=== PATIENT | male | born 1975 | race Caucasian/White ===

== ENCOUNTER 2018-06-20 01:14 | Outpatient (CLI) | payer MEDICAID, SELFPAY | END 2018-06-20 01:34 | PROVIDERS: PCP Internal Medicine; Visit Provider Nurse Practitioner Family | DX: R69 Illness, unspecified (principal) ==

== ENCOUNTER 2018-09-08 02:40 | Outpatient (CLI) | payer MEDICAID, SELFPAY | END 2018-09-08 03:00 | PROVIDERS: PCP Nurse Practitioner Family; Visit Provider Nurse Practitioner Family | DX: Z79.899 Other long term (current) drug therapy (principal); Z53.8 Procedure and treatment not carried out for other reasons ==

== ENCOUNTER 2019-11-19 08:39 | Emergency (ER) | payer MEDICAID, SELFPAY ==
[2019-11-19 08:47] VITALS: BP 120/81; PULSE 96; RESP 16; TEMP 37.8; O2SAT 98
--- NOTE | 2019-11-19 08:58 | ED.GENADUL_ITS ---
Discharge Plan Disposition Patient Disposition: HOME Condition: Stable Discharge Details Chief Complaint: GenMedical Clinical Impression: Left-sided weakness Primary Care Provider: Milli Hancock ED Provider: Issa Emmanuel Home Meds and New Rx's Prescriptions: Continued cyclobenzaprine 10 MG tablet 10 mg PO Q8H PRN PRNQty: 14 RF: 0 Discharge Instructions Instructions: Weakness (ED) Additional Instructions: Blood work and x-ray in the ER do not reveal any emergent process. MRI was offered but declined as you would like to pursue outpatient options for an open MRI. I will also give you a referral to our local neurology team. Please watch for new or worsening symptoms and return to the ER for any concerns Referrals: Lelia Lopez MD [ [facility] STAFF PHYSICIAN] - Discharge Data Discharge Date/Time-TO BE ENTERED AT DEPARTURE: 11/19/19 10:40 Medical Decision Making 44-year-old gentleman who has had left-sided weakness since Saturday morning. Already evaluated in another ER. Will reach out to get their records. He currently has a left-sided mouth droop, left arm weakness as documented above. Subjectively feels as though his left leg is weak although I cannot appreciate this on his evaluation. He did present with a low-grade fever however upon reevaluation without any antipyretics he was afebrile. Patient reports that he had a poor experience at the other facility and is here now for a second opinion. He has no new symptoms since Saturday. He clearly has a left-sided deficit, will initiate a cardiac work-up and obtain other records. I was able to review the records from [facility]. He was diagnosed with left facial weakness I was also able to review his CT noncontrast of the head and CT angiograph which was normal. He was evaluated by neurology and started on aspirin therapy. Patient reports that he had a poor experience as an outpatient with neurology and was unable to have his outpatient MRI. My plan today is to see if MRI capabilities are available, work-up already in process, and I will reach out to neurology. I have set the patient up for an MRI at 1 PM today and unfortunately neurology office is closed today but will provide the patient with a referral so he may have a second opinion through neurology locally. Work-up in the ER is unremarkable regarding his blood work and EKG. No change in his presentation upon reevaluation. He reports that he cannot go into a closed MRI and is now declining the MRI today at 1 PM. I explained to him the importance of MRI to further evaluate his symptoms. His symptoms are challenging as they do not fit purely into a TIA, CVA, Oliva's palsy, as his symptoms have essentially waxed and waned. Patient understands this, I even offered to prescribe him Valium to help with his concerns of claustrophobia in the MRI machine but he still declines. He will pursue outpatient MRI at another facility that has what he describes as an open standing MRI machine. Patient ambulated steadily from the ER with unchanged neuro deficit, benign laboratory values and EKG. As above, patient has declined his MRI but does understand the importance of MRI for further evaluation of his symptoms. He was given a referral to Dr. Lopez who I recommended that he contact tomorrow for prompt outpatient reevaluation. He was encouraged to return to the ER for new or worsening symptoms. ECG Data Attestation: I personally reviewed and interpreted this ECG (s) as follows: Interpretation: Sinus rhythm, ventricular rate of 83. No acute ST elevation or depression segments. Reviewed with Dr. Richi CARABALLO General Mode of arrival: ambulatory . Date/Time Provider Initiated Documentation: 11/19/19 08:41 . Limitations to Documentation: no limitations . Information obtained by: patient and family . HPI Narrative: 44-year-old gentleman who presents to the ER via private vehicle with his family for a second opinion of symptoms that began over the weekend. He reports that on Saturday he had a global headache, slightly worse on the left. Occasionally he felt as though his left peripheral vision was altered but this has happened in the past. He currently has no headache or visual changes. He woke up Saturday morning around 9 AM, having gone to bed around 1 AM, and noticed left-sided weakness in his face, arm, leg. He reports that he went to [facility], seen in the ER, reports that his blood work and CT imaging of his head was negative, he saw neurology in the ER and they initiated daily aspirin therapy. He was told that he had a mini stroke, set up with outpatient neurology the following day for MRI, reports poor experience with neurology, and could not have the MRI obtained because he felt claustrophobic and they were unwilling to medicate him. He reports that he continues to have left sided mouth weakness, left arm weakness, and mild left leg weakness. Patient and family report that the weakness is always there but does seem to change in severity. Patient does report taking daily methadone, no change in his dose. Occasional alcohol use, does smoke about a pack a day. He denies recent illness or trauma. Related Data Home Medications Medication Instructions Recorded Confirmed cyclobenzaprine 10 mg PO Q8H PRN PRN #14 tab 10/25/17 Previous Rx's Medication Instructions Recorded cyclobenzaprine 10 mg PO Q8H PRN PRN #14 tab 10/25/17 Allergies Allergy/AdvReac Type Severity Reaction Status Date / Time No Known Allergies Allergy Verified 01/20/19 12:40 General Stated Complaint: Recheck KASSIDY: 3 Review of Systems Constitutional Constitutional: Denies chills, Denies fatigue, Denies fever(s) and Reports headache(s) Eyes Eyes: Reports loss of peripheral vision (Occasionally, not currently) ENT Ears, Nose, Mouth, and Throat: Reports headache(s), Denies neck pain and Denies sore throat Cardiovascular Cardiovascular: Denies chest pain and Denies dyspnea Respiratory Respiratory: Denies cough and Denies dyspnea Gastrointestinal Gastrointestinal: Denies abdominal pain, Denies nausea and Denies vomiting Musculoskeletal Musculoskeletal: Denies back pain, Denies myalgias, Reports muscle weakness, Denies neck pain, Denies numbness and Denies tingling Integumentary/Breasts Skin/Breast: Denies rash Neurologic Neurologic: Reports headache(s), Reports lack of coordination, Reports focal weakness, Denies numbness, Denies tingling and Reports paresthesias (Left side of face) Endocrine Endocrine: Denies fatigue Hematologic/Lymphatic Hematologic/Lymphatic: Denies easy bruising [facility] Medical History Ankle fracture, left (Acute) Cervical spine fracture (Acute) Social History Smoking/Tobacco Use Status: Current every day Tobacco Type: cigarettes Smoking packs per day: 1.5 Smoking cigarettes per day: 30.0 Years smoked: 8 Smoking pack-years: 12.00 Quit status: considering quitting Counseling given: provider counseling and support program Alcohol Intake: never Substance use type: does not use 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[employer], 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 [employer] What is your relationship status?: Panel score (0-1 are the most socially isolated patients): 1 Do you feel safe at home: Yes Do you feel safe in your relationship?: Yes Exam Const General: cooperative, healthy appearing, comfortable and no acute distress Orientation: alert, awake and oriented x3 [facility] Head: normal to inspection, normocephalic and atraumatic Ears: external ears normal, TM's normal bilaterally and EAC's normal General nose exam: external nose normal Face and sinus: face asymmetric (Left mouth droop) Mouth: oral mucosae normal and moist mucous membranes Eyes General: appearance normal, both eyes and all related structures Alignment and Position: alignment normal Periorbital: periorbital findings normal Conjunctivae: conjunctivae normal Sclera: sclerae normal Cornea: corneas normal Pupils: PERRL EOM: EOM intact bilaterally Direct ophthalmoscopy: normal light reflex Neck Neck: normal visual inspection, full ROM, no lymphadenopathy, no meningeal signs, trachea midline and supple Resp Effort & Inspection: normal respiratory effort and able to speak in complete sentences Auscultation: clear to auscultation bilaterally Cardio Rate: regular rate Rhythm: regular rhythm GI Inspection: normal to inspection Palpation: soft and nontender Back/Spine/Pelvis Back: No back tenderness Skin General skin exam: no rashes or lesions noted Neuro General: alert, awake, oriented x3, moves all extremities and no focal motor deficits Cranial Nerves: PERRL, EOM intact bilaterally, no nystagmus, facial strength abnormal, tongue midline, hearing normal, able to rotate head bilaterally and able to elevate shoulders bilaterally Cognition: normal cognition Speech: speech normal Gait: other (The patient appears to be slightly favoring his left side with ambulation.) Motor: no fasciculations, pronator drift pronator drift of left upper extremity, strength abnormal left upper extremity flexion 4 / 5, extension 4 / 5 and abduction 4 / 5 and 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 (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) Sensory Exam: no sensory deficits noted Coordination: [id number] test normal (Right normal, left, slow, deliberate, shaky but able to do), [id number] test normal (Difficult on the left side but was able to do) and Does not sway with eyes open Extrem Right upper extremity: normal to inspection, full ROM and normal capillary refill; no cyanosis and no edema Left upper extremity: normal to inspection (As above with the weakness), full ROM and normal capillary refill Right lower extremity: normal to inspection Left lower extremity: normal to inspection Psych Appearance: grossly normal Mental Status: mental status grossly normal Course Vital Signs Vital signs: Vital Signs Temperature 37.8 C H 11/19/19 08:47 Pulse 96 H 11/19/19 08:47 Respiratory Rate 16 11/19/19 08:47 Blood Pressure 120/81 11/19/19 08:47 Pulse Oximetry 98 11/19/19 08:47 Temperature 37.8 C H 11/19/19 08:47 Temperature Source Tympanic 11/19/19 08:47 Pulse 96 H 11/19/19 08:47 Respiratory Rate 16 11/19/19 08:47 Blood Pressure 120/81 11/19/19 08:47 Blood Pressure Position Sitting 11/19/19 08:47 Pulse Oximetry 98 11/19/19 08:47 Oxygen Delivery Method Room Air 11/19/19 08:47 Oxygen Flow Rate 0 11/19/19 08:47
--- NOTE | 2019-11-19 09:15 | DI.RAD_ITS ---
EXAM: <XR CHEST 2V PA LATERAL> CLINICAL HISTORY: <weakness> TECHNIQUE: 2D digital imaging was performed. COMPARISON: RIGHT SHOULDER COMPLETE from 10/25/2017 FINDINGS: The cardiac and mediastinal contours have a normal appearance. The lungs are well inflated and clear . No infiltrate, effusion or pneumothorax is seen. No spine or rib fracture is identified. IMPRESSION: Negative chest x-ray.
[2019-11-19 09:30] VITALS: RESP 14
[2019-11-19 09:50] LABS: Abs Immature Grans 0.03 k/cumm (0.0-0.09); Absolute Basophil Count 0.03 k/cumm (0.0-0.2); Absolute Eosinophil Count 0.18 k/cumm (0.0-0.7); Absolute Neutrophil Count 9.01 k/cumm (1.2-6.7); Basophils % 0.2; Eosinophils % 1.4; HCT 47.7 % (40.0-50.0); HGB 16.1 g/dL (13.5-17.5); Immature Grans % 0.2 %; Lymphocytes % 20.6; Mean Corp. HGB Concentration 33.8 g/dL (32.0-36.0); Mean Corpuscular Hemoglobin 28.9 pg (27.0-33.0); Mean Corpuscular Volume 85.6 fL (80-95); Mean Platelet Volume 9.4 fL (8.0-11.0); Monocytes % 6.3; Neutrophils % 71.3; Platelet Count 281 x1000/uL (130-400); RBC 5.57 m/cumm (4.50-6.00); RBC Distribution Width 14.2 % (11.8-14.1); White Blood Cell Count 12.64 k/cumm (4.4-10.8)
[2019-11-19 10:09] LABS: INR 1.1 (0.9-1.1); PTT Activated 25.9 sec (21.0-31.4); Prothrombin Time 10.6 sec (9.3-11.0)
[2019-11-19 10:10] LABS: ALT 22 U/L (16-63); AST 19 U/L (15-37); Albumin 3.9 g/dL (3.4-5.0); Alkaline Phosphatase 99 U/L (46-116); BUN 17 mg/dL (7-18); Bilirubin, Total 1.1 mg/dL (0.2-1.0); Calcium 8.7 mg/dL (8.5-10.1); Chloride 103 mmol/L (98-107); Glucose 93 mg/dL (74-106); Potassium 3.9 mmol/L (3.5-5.1); Sodium 138 mmol/L (136-145); Total Protein 7.3 g/dL (6.4-8.2)
[2019-11-19 10:12] LABS: Troponin I < 0.05 ng/Ml (<0.06)
[2019-11-19 10:36] VITALS: BP 130/90; PULSE 81; RESP 16; TEMP 36.6
== END 2019-11-19 10:40 | disposition home or self-care (01) ==
PROVIDERS: Emergency Provider Physician Assistant; PCP Nurse Practitioner Family
DX: R29.810 Facial weakness (principal); G83.34 Monoplegia, unspecified affecting left nondominant side
CPT/HCPCS: 36415; 80053; 93005; 99285; 71046; 84484; 85025; 85610; 85730; 93010

== ENCOUNTER 2019-12-15 10:48 | Outpatient (REF) | payer MEDICAID, SELFPAY ==
[2019-12-15 19:44] LABS: Calculated LDL 170 mg/dL (<100); Cholesterol 244 mg/dL (<200); HDL Cholesterol 52 mg/dL (40-60); Triglyceride 113 mg/dL (<150)
== END 2019-12-15 11:08 ==
LOC: NCHCN 10:48
PROVIDERS: PCP Nurse Practitioner Family; Visit Provider Physician Assistant
DX: G81.94 Hemiplegia, unspecified affecting left nondominant side (principal)
CPT/HCPCS: 80061

== ENCOUNTER 2020-02-16 00:44 | Outpatient (CLI) | payer MEDICAID, SELFPAY ==
--- NOTE | 2020-01-27 14:21 | DI.US_ITS ---
APPROVED REPORT EXAM: Comprehensive 2D, Doppler, and color-flow Echocardiogram Patient Location: In-Patient [employer] Teacher: Juana Barrientos RDCS (AE) Indications: CVA Echo Enhancing Agent Indication: Rule out Shunt Agent(s) / Amount(s) Used: Agitated Saline cc Other Information Study Quality: Good Conclusion Normal left ventricular wall thickness and chamber size. There are no segmental wall motion abnormal ities. Estimated ejection fraction is 60% There is no chamber enlarged There are no structural valvular abnormalities There was no evidence of patent foramen ovale or intracardiac shunt noted with administration of agit ated saline Wall motion Left Ventricle The left ventricle is normal size. The left ventricular systolic function is normal. The left ventric ular ejection fraction is within the normal range. There is normal left ventricular wall thickness. T here is normal LV segmental wall motion. The left ventricular diastolic function is normal. LVEF is 6 0%. Right Ventricle The right ventricle is normal size. The right ventricular systolic function is normal. Atria The left atrium size is normal. The right atrium size is normal. The interatrial septum is intact wit h no evidence for an atrial septal defect. Saline bubble contrast intravenous injection does not demo nstrate PFO. Aortic Valve The aortic valve is normal in structure. Aortic valve is trileaflet. There is no aortic valvular sten osis. No aortic regurgitation is present. Mitral Valve The mitral valve is normal in structure. No evidence of mitral valve stenosis. Trace mitral regurgita tion. Tricuspid Valve The tricuspid valve is normal in structure. There is no tricuspid valve stenosis. Trace tricuspid reg urgitation. Pulmonic Valve The pulmonary valve is normal in structure. There is no pulmonic valvular stenosis. There is no pulmo anthony valvular regurgitation. Great Vessels The aortic root is normal in size. Ascending aorta is not well visualized. IVC is normal in size and collapses >50% with inspiration. Pericardium There is no pericardial effusion. 2D Dimensions IVSD d PLAX 1.06 cm M: 0.6-1.2 LV Vol A2C d MOD 99.5 mL LVPW d PLAX 1.04 cm M: 0.6 - 1.2 LV Vol A4C d MOD 93.9 mL LVID d PLAX 4.36 cm M: 4.2 - 5.8 LA vol/ BSA A2C s A-L 22.4 mL/m2 LVDs 3.20 cm M: 2.5 - 4.0 LA vol/ BSA A4C s A-L 16.4 mL/m2 Ao Root d 3.25 cm M: 3.1 - 3.7 LA Vol/ BSA Biplane s A-L 19.9 mL/m2 RA Area A4C 11.38 cm2 LA Area A4C s MOD 13.04 cm2 RA Vol/ BSA A4C s A-L 14.1 mL/m2 LA Area A2C s MOD 14.68 cm2 LV EF Teichholz 51.7 % LV EF A4C MOD 61.4 % LVEF (Manjarrez's) 60.75 % M: 52 - 72 LV EF A2C MOD 62.6 % LV Volume 73.18 mL M: 62 - 150 LV EF Biplane MOD 60.8 % LV Volume Index 36.77 mL/m2 M: 34 - 74 LV Vol Biplane MOD 97.4 mL FS 26.20 % M-Mode TAPSE 2.69 cm (M/F) >1.7 LV Diastology MV E' medial 0.086 (>0.07 m/s) E/A Ratio 1.2 LV E/e MED 7.70 (<14) MV E Vmax 0.67 (0.4-1.3 m/s) MV E' lateral 0.109 (>0.1 m/s) MV A Vmax 0.55 (0.4-1.3 m/s) LV E/e LAT 6.10 (<14) MV E/A Ratio 1.18 MV E/E' medial 7.72 MV E/E' lateral 6.11 Aortic Valve LVOT Area 3.26 cm2 AoV Area Vmax 2.64 cm2 LVOT Vmax 0.85 m/s AoV Area/ BSA (Vmax) 1.33 cm2/m2 LVOT Mean Tevin. 0.57 m/s GREGOR Mean Tevin. 2.73 cm2 LVOT Peak Grad 2.9 mmHg GREGOR Mean Tevin. Index 1.37 cm2/m2 LVOT Mean Grad 1.5 mmHg LVOT VTI 0.132 m LVOT Diam s 2.00 cm (M/F) 1.5-2.5 AoV Vmax 1.05 (0.5-1.3 m/s) Velocity Ratio 0.80 AoV Mean Tevin. 0.69 m/s AoV Peak Grad 4.4 mmHg LVOT SV 42.92 mL AoV Mean Grad 2.2 (<5 mmHg) AoV VTI 0.173 (0.18-0.25 m) AoV Area VTI 2.48 (2.5-4.5 cm2) AoV Area/ BSA (VTI) 1.24 cm/m2 Mitral Valve MV DT 217 (160-240 msec) MV PHT 63 msec MV Area PHT 3.50 cm2 Pulmonary Valve PV Vmax 1.17 (0.5-1.5 m/s) RVOT Peak Gr. 4.18 mmHg PV Peak Grad 5.5 mmHg RVOT Mean Gr. 2.05 mmHg PV Mean Grad 2.8 mmHg RVOT VTI 0.145 m PV VTI 0.188 m RVOT Vmax 1.02 m/s Tricuspid Valve TR Peak Grad 16.8 mmHg TR Vmax 2.05 m/s RA Pressure 3.00 mmHg RVSP (TR) 19.9 mmHg
[2020-01-27] MEDS: Normal Saline Flush 10 ML SYR 30 ML IVP (15:48)
== END 2020-02-16 01:04 ==
PROVIDERS: PCP Nurse Practitioner Family; Visit Provider Psychiatry & Neurology Neurology
DX: I69.352 Hemiplegia and hemiparesis following cerebral infarction affecting left dominant side (principal); G81.94 Hemiplegia, unspecified affecting left nondominant side
CPT/HCPCS: 93270; 93306

== ENCOUNTER 2025-07-25 01:36 | Emergency (ER) | payer OTHER, SELFPAY ==
[2025-07-25 01:40] VITALS: BP 141/80; PULSE 98; RESP 22; TEMP 37.1; O2SAT 100
[2025-07-25 01:51] VITALS: PULSE 112; O2SAT 98
[2025-07-25 02:01] VITALS: BP 117/91; PULSE 107
--- NOTE | 2025-07-25 02:15 | DI.RAD_ITS ---
Exam(s) XR PELVIS AP EXAM: XR PELVIS AP CLINICAL HISTORY: fall, pain, recent hip replacement with femur gayle. TECHNIQUE: 2D digital imaging was performed. COMPARISON: CR,XR XR FEMUR LT from 07/25/2025 FINDINGS: Single AP view of the pelvis. No evidence of pelvic fracture. There is a left hip prosthesis which is partially included in the field of view and there is a femoral sideplate extending caudally from the level of the greater trochanter. IMPRESSION: As above. DATA REPOSITORY: RADIATION DOSE DELIVERED:
--- NOTE | 2025-07-25 02:15 | DI.RAD_ITS ---
Exam(s) XR FEMUR LT EXAM: XR FEMUR LT CLINICAL HISTORY: fall, pain, left hip replacement with femur gayle. TECHNIQUE: 2D digital imaging was performed. COMPARISON: No exams were available for comparison FINDINGS: Two views-AP and lateral There is a left hip prosthesis which is in satisfactory position alignment. There is a long lateral fixation plate extending from the lower aspect of the greater trochanter down to the junction of the middle and distal thirds of the femur secured by multiple screws. There is also a long intramedullary gayle across a healed fracture site/deformity at the junction of the mid and distal thirds of femur. No evidence of hardware loosening nor osteomyelitis. There are skin gisel both laterally and medially. Small radiopaque foreign bodies are noted in the soft tissues in the lower half of the thigh. IMPRESSION: Intact hardware as described above. No acute osseous findings. No radiographic evidence of osteomyelitis. DATA REPOSITORY: RADIATION DOSE DELIVERED:
--- NOTE | 2025-07-25 02:28 | W.ED.GENAD ---
Discharge Plan Disposition Patient Disposition: [facility] Discharge Details Clinical Impression: Contusion of knee and lower leg Primary Care Provider: Unknown,Unknown ED Provider: Elias Cutler Home Meds and New Rx's Prescriptions: No Action methadone 10 mg tablet 70 mg PO DAILY lorazepam [Ativan] 1 mg tablet 1 mg PO ONCE PRN (Reason: anxiety) Qty: 2 0RF Rx Instructions: Take 30min prior to MRI. Ok to take 2nd if still claustrophic aspirin 81 mg tablet,delayed release (DR/EC) 81 mg PO DAILY Qty: 30 1RF atorvastatin 40 mg tablet 40 mg PO QHS zolpidem 10 mg tablet 5 mg PO QHS PRN sertraline 50 mg tablet 50 mg PO DAILY Discharge Instructions Instructions: Acute Pain, Adult (DC) Additional Instructions: Follow-up with the [facility] for ongoing medical care and pain management as needed. You can always return to the ER for any new concerns or sudden changes in your that you feel emergency medical attention Discharge Data Discharge Physician: Elias Cutler HPI General Date/Time Provider Initiated Documentation: 07/25/25 02:20. HPI Narrative: The patient is a 50-year-old male, with a past medical history significant for recent left-sided hip replacement with femur rodding, opioid misuse disorder, hyperlipidemia, prior traumatic brain injury, who presents to the emergency department this evening in the custody of corrections officers after he had a fall both while at intake, and again in the parking lot here in the emergency room. The patient was in handcuffs and leg irons and had difficulty moving his limbs to stand and take all of his clothing during intake, and again while getting out of the corrections vehicle. Department. The patient reports pain in the left hip, medially with some radiation of the pain into the pelvis on that side. The patient is only a few days out from surgery and still has his initial surgical dressings in place. The patient was offered placement in a short-term rehabilitation facility for physical therapy, but declined. The patient was picked up by both federal and state corrections officers for fentanyl trafficking. He continues to be in their custody at this time. There do not appear to be any other injuries from the patient's falls tonight. There was a report of the patient grazing his head during his initial fall, but there does not appear to be any traumatic injury related to this, the patient reportedly did not lose consciousness, and the patient has no complaints. Related Data Home Medications Medication Instructions Recorded Confirmed aspirin 81 mg tablet,delayed 81 mg PO DAILY #30 tabs 12/03/19 12/03/19 release lorazepam 1 mg tablet (Ativan) 1 mg PO ONCE PRN anxiety #2 tabs 12/03/19 12/03/19 methadone 10 mg tablet 70 mg PO DAILY 12/03/19 12/03/19 atorvastatin 40 mg tablet 40 mg PO QHS 01/20/20 01/20/20 sertraline 50 mg tablet 50 mg PO DAILY 01/20/20 01/20/20 zolpidem 10 mg tablet 5 mg PO QHS PRN 01/20/20 01/20/20 Previous Rx's Medication Instructions Recorded aspirin 81 mg tablet,delayed 81 mg PO DAILY #30 tabs 12/03/19 release lorazepam 1 mg tablet (Ativan) 1 mg PO ONCE PRN anxiety #2 tabs 12/03/19 Allergies Allergy/AdvReac Type Severity Reaction Status Date / Time No Known Allergies Allergy Verified 07/25/25 01:45 EST General Stated Complaint: Fall/Non TraumaCriteria KASSIDY: 3 Exam Const General: cooperative and acute distress moderate Orientation: alert, awake and oriented x3 HENMT Head: normal to inspection, no palpable skull fracture, normocephalic, atraumatic, no abrasions, no Read's sign and no scalp tenderness Ears: hearing grossly normal bilaterally and external ears normal General nose exam: external nose normal, nares normal and nasal discharge present Face and sinus: normal facial exam and sinuses nontender Eyes General: appearance normal, both eyes and all related structures Eyelids: eyelids normal Pupils: PERRL EOM: EOM intact bilaterally Chest Chest: normal inspection of the chest and normal palpation of entire chest wall Resp Effort & Inspection: normal respiratory effort Auscultation: clear to auscultation bilaterally Cardio Rate: tachycardic Rhythm: regular rhythm Heart Sounds: S1 normal and S2 normal GI Inspection: normal to inspection Palpation: soft Auscultation: normal bowel sounds Back/Spine/Pelvis Other: No complaints of back pain on exam. The patient had no significant pain to pelvic traction maneuvers. Skin Other: There are multiple intact staple lines in the left lateral hip, thigh, and knee. There do not appear to be any areas of dehiscence. There are intact dressings and Xeroform bandages over the wounds. Neuro General: patient alert, patient awake, patient oriented x3, moves all extremities, normal light touch, pain and propioception, no focal motor deficits and CN's II-XI intact bilaterally Extrem Other: The left lower extremity has multiple intact staple lines running along the hip, anterior thigh, and anterior knee. The longest of these measures approximately 15 cm in length and is lateral to the hip joint from the buttocks to the mid thigh. There are several 4 to 5 cm staple lines across the anterior thigh and on the knee anteriorly. There is some dependent edema in the distal left lower extremity below the knee without any evidence of chronic venous insufficiency. There are no areas of induration, palpable firmness suggesting hematoma, obvious erythema that would be associated with a postoperative infection, or any significant drainage from the wounds. Course Vital Signs Vital signs: Vital Signs Temperature 37.1 C 07/25/25 01:40 EST Pulse 98 H 07/25/25 01:40 EST Respiratory Rate 22 07/25/25 01:40 EST Blood Pressure 141/80 H 07/25/25 01:40 EST Pulse Oximetry 100 07/25/25 01:40 EST Temperature 37.1 C 07/25/25 01:40 EST Temperature Source Oral 07/25/25 01:40 EST Pulse 112 H 07/25/25 01:51 EST Respiratory Rate 22 07/25/25 01:40 EST Blood Pressure 141/80 H 07/25/25 01:40 EST Blood Pressure Position Sitting 07/25/25 01:40 EST Pulse Oximetry 98 07/25/25 01:51 EST Oxygen Delivery Method Room Air 07/25/25 01:40 EST Oxygen Flow Rate 0 07/25/25 01:40 EST Pain Level 10 07/25/25 01:52 EST Medical Decision Making The patient was seen and examined. An IV was placed and he was given IV analgesics here in the emergency room for his pain. The patient's thigh and palpable components of the femur and hip feel as though they are normally in place and are intact. The patient's staple lines are intact and there is been no wound dehiscence or significant damage done. The patient will have x-rays of the pelvis then the completed femur on the left side to ensure that the prosthesis continues to be in place. There is no evidence of any wound infection or any obvious traumatic hematoma collection in the thigh. Disposition will depend on discovery of any significant pathology on x-ray testing. 0430 - The X-rays were negative for any focal hardware damage, migration, or fractures. The patient is sleeping on my arrival to the room and is clearly not in any significant distess. The wounds were redressed prior to discharge back to the corrections facility. PFSH All Active Problems (Updated 07/25/25 @ 04:32 by Elias Cutler MD) Contusion of knee and lower leg (Acute) Cerebrovascular accident (CVA) (Chronic) Smoker (Acute) Left hemiparesis (Acute) Left-sided weakness (Acute) Medical History (Updated 07/25/25 @ 04:32 by Elias Cutler MD) Chronic, continuous use of opioids TBI (traumatic brain injury) 2011, hit by falling tree Cervical spine fracture 2011, hit by falling tree Ankle fracture, left Surgical History S/P foot surgery, left Family History Other Colon cancer Diabetes Heart disease Lung cancer Stroke Social History Smoking/Tobacco Use Status: Current every day Tobacco Type: cigarettes Smoking packs per day: 1.5 Smoking cigarettes per day: 30.0 Years smoked: 8 Smoking pack-years: 12.00 Quit status: considering quitting Counseling given: provider counseling and support program Smoking risk assessment performed?: Yes Alcohol Intake: current Alcohol Intake frequency: holidays/special occasions only Drug use: Current Sobriety Substance use type: does not use Household members: family Housing: house Number of Children: 4 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
[2025-07-25] MEDS: Ketorolac 30 MG/ML VIAL IVP (02:31)
[2025-07-25] MEDS: HYDROmorphone 2 MG/ML SYR 1 MG IVP (02:31)
--- NOTE | 2025-07-25 03:56 | DI.VRAD_ITS ---
PROCEDURE INFORMATION: Exam: XR Left Femur Exam date and time: 07/25/2025 3:30 AM Age: 50 years old Clinical indication: Injury or trauma; Blunt trauma; Thigh or upper leg; Injury details: Fall, pain, left hip replacement with femur gayle; Prior surgery; Surgery date: 3-7 days post-operative TECHNIQUE: Imaging protocol: Radiologic exam of the left femur. Views: 2 views. COMPARISON: No relevant prior studies are available for comparison. FINDINGS: Bones/joints: Left hip replacement with femoral sideplate and intramedullary gayle. No acute fracture seen. Nonacute distal femoral deformity. Soft tissues: Skin gisel. Small foreign bodies in the soft tissues. IMPRESSION: 1. No acute fracture seen. 2. Nonacute findings as outlined above. Dictated and Authenticated by: Maria Del Carmen Agosto MD. Orderin Omayra Griffin MD
--- NOTE | 2025-07-25 03:56 | DI.VRAD_ITS ---
PROCEDURE INFORMATION: Exam: XR Pelvis Exam date and time: 07/25/2025 3:27 AM Age: 50 years old Clinical indication: Injury or trauma; Blunt trauma (contusions or hematomas); Hip and pelvic region; Injury details: Fall, pain, left hip replacement with femur gayle; Prior surgery; Surgery date: 3-7 days post-operative TECHNIQUE: Imaging protocol: Radiologic exam of the pelvis. Views: 1 or 2 view. COMPARISON: No relevant prior studies available. FINDINGS: No acute fracture seen. Left hip replacement with femoral plate. IMPRESSION: No acute fracture seen. Dictated and Authenticated by: Maria Del Carmen Agosto MD. Orderin Omayra Griffin MD
[2025-07-25 04:35] VITALS: BP 120/72; PULSE 74; RESP 18; O2SAT 96
--- NOTE | 2025-07-25 12:53 | NUR.NOTE ---
Nursing Note: [facility] Updated on meds given in the ED including dilaudid and ketorolac
== END 2025-07-25 04:41 ==
PROVIDERS: Emergency Provider Emergency Medicine Emergency Medical Services
DX: S80.02XA Contusion of left knee, initial encounter (principal); W19.XXXA Unspecified fall, initial encounter
CPT/HCPCS: 99284; 99285; 96374; 96375; 73552; 72170; J1171; J1885

== ENCOUNTER 2025-07-26 08:37 | Emergency (ER) | payer OTHER, SELFPAY ==
[2025-07-26 08:48] VITALS: BP 130/107; PULSE 78; RESP 16; TEMP 36.4; O2SAT 98
--- NOTE | 2025-07-26 09:14 | W.ED.GENAD ---
Discharge Plan Disposition Patient Disposition: Home Condition: Stable Discharge Details Clinical Impression: Methadone use, Polysubstance use disorder, Closed hip fracture Primary Care Provider: Unknown,Unknown ED Provider: Radha Sanchez Home Meds and New Rx's Prescriptions: Continued methadone 10 mg tablet 120 mg PO DAILY Patient Comments: Verified by [facility] lorazepam [Ativan] 1 mg tablet 1 mg PO ONCE PRN (Reason: anxiety) Qty: 2 0RF Rx Instructions: Take 30min prior to MRI. Ok to take 2nd if still claustrophic aspirin 81 mg tablet,delayed release (DR/EC) 81 mg PO DAILY Qty: 30 1RF atorvastatin 40 mg tablet 40 mg PO QHS zolpidem 10 mg tablet 5 mg PO QHS PRN sertraline 50 mg tablet 50 mg PO DAILY Discharge Instructions Additional Instructions: You have received your dose of methadone, please have your blood pressure rechecked by your primary care physician as it slightly elevated today in the emergency department and return earlier should you have new or worsening complaints Stand Alone Forms: Portal Information HPI General Date/Time Provider Initiated Documentation: 07/26/25 08:54. HPI Narrative: This 50-year-old male recently discharged from [facility] in custody of [facility] status post ORIF of hip and history of polysubstance abuse presents for methadone dose. He is pending being established with [facility] in [place] and needs a dose of 120 mg of methadone which was initiated at [facility]. He denies any current complaints. Related Data Home Medications Medication Instructions Recorded Confirmed aspirin 81 mg tablet,delayed 81 mg PO DAILY #30 tabs 12/03/19 12/03/19 release lorazepam 1 mg tablet (Ativan) 1 mg PO ONCE PRN anxiety #2 tabs 12/03/19 12/03/19 methadone 10 mg tablet 120 mg PO DAILY 12/03/19 07/26/25 atorvastatin 40 mg tablet 40 mg PO QHS 01/20/20 01/20/20 sertraline 50 mg tablet 50 mg PO DAILY 01/20/20 01/20/20 zolpidem 10 mg tablet 5 mg PO QHS PRN 01/20/20 01/20/20 Previous Rx's Medication Instructions Recorded aspirin 81 mg tablet,delayed 81 mg PO DAILY #30 tabs 12/03/19 release lorazepam 1 mg tablet (Ativan) 1 mg PO ONCE PRN anxiety #2 tabs 12/03/19 Allergies Allergy/AdvReac Type Severity Reaction Status Date / Time No Known Allergies Allergy Verified 07/26/25 08:52 General Stated Complaint: RX Refill KASSIDY: 4 Exam Narrative Exam Narrative: Alert, oriented, answering questions appropriately Course Vital Signs Vital signs: Vital Signs Temperature 36.4 C L 07/26/25 08:48 Pulse 78 07/26/25 08:48 Respiratory Rate 16 07/26/25 08:48 Blood Pressure 130/107 H 07/26/25 08:48 Pulse Oximetry 98 07/26/25 08:48 Temperature 36.4 C L 07/26/25 08:48 Temperature Source Temporal Artery Scan 07/26/25 08:48 Pulse 78 07/26/25 08:48 Respiratory Rate 16 07/26/25 08:48 Blood Pressure 130/107 H 07/26/25 08:48 Blood Pressure Position Sitting 07/26/25 08:48 Pulse Oximetry 98 07/26/25 08:48 Oxygen Delivery Method Room Air 07/26/25 08:48 Oxygen Flow Rate 0 07/26/25 08:48 Pain Level 0 07/26/25 08:48 Medical Decision Making Assessment and plan: Patient had confirmation of methadone dose of 120 mg, this was administered and blood pressure was rechecked and stable. Return precautions reviewed and patient discharged in care of [facility] staff [facility] All Active Problems (Updated 07/26/25 @ 09:06 by HELADIO Sims) Closed hip fracture (Acute) Polysubstance use disorder (Acute) Methadone use (Acute) Contusion of knee and lower leg (Acute) Cerebrovascular accident (CVA) (Chronic) Smoker (Acute) Left hemiparesis (Acute) Left-sided weakness (Acute) Medical History (Updated 07/26/25 @ 09:06 by HELADIO Sims) Chronic, continuous use of opioids TBI (traumatic brain injury) 2011, hit by falling tree Cervical spine fracture 2011, hit by falling tree Ankle fracture, left Surgical History S/P foot surgery, left Family History Other Colon cancer Diabetes Heart disease Lung cancer Stroke Social History Smoking/Tobacco Use Status: Current every day Tobacco Type: cigarettes Smoking packs per day: 1.5 Smoking cigarettes per day: 30.0 Years smoked: 8 Smoking pack-years: 12.00 Quit status: considering quitting Counseling given: provider counseling and support program Smoking risk assessment performed?: Yes Alcohol Intake: current Alcohol Intake frequency: holidays/special occasions only Drug use: Current Sobriety Substance use type: does not use Household members: family Housing: house Number of Children: 4 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
[2025-07-26] MEDS: Methadone Liquid 10 MG/ML 120 MG PO (09:55)
[2025-07-26 10:07] VITALS: BP 135/83; PULSE 91; O2SAT 100
== END 2025-07-26 10:08 | disposition home or self-care (01) ==
LOC: ER 09:14
PROVIDERS: Emergency Provider Physician Assistant
DX: F11.90 Opioid use, unspecified, uncomplicated (principal); F19.90 Other psychoactive substance use, unspecified, uncomplicated
CPT/HCPCS: 99283; 99285